=== PATIENT | male | born 1990 | race Caucasian/White ===

== ENCOUNTER 2017-01-11 15:45 | Emergency (ER) | payer SELFPAY ==
[~2017-01-11] VITALS: Ht 170.2 cm; Wt 81.8 kg
[~2017-01-11 15:45] MED LIST: ORPHENADRINE C100 MG PO; ULTRAM50 M1 PO
[2017-01-11] MEDS ORDERED: PROTONIX TR40 M1 PO (18:26)
[2017-01-11 18:55] VITALS: BP 140/61
== END 2017-01-11 18:53 | disposition home or self-care (01) ==
LOC: ED 15:45
DX: K29.70 Gastritis, unspecified, without bleeding (principal); R10.13 Epigastric pain; R74.8 Abnormal levels of other serum enzymes; R11.0 Nausea; R19.5 Other fecal abnormalities
CPT/HCPCS: C9113; J7030